=== PATIENT | male | born 1935 | race Caucasian/White ===

== ENCOUNTER 2016-11-10 09:41 | Emergency (ER) | payer MEDICARE, OTHER ==
--- NOTE | 2016-11-10 10:04 | EDM.PDOC ---
ED HISTORY OF PRESENT ILLNESS - General Chief Complaint: Cardiovascular Problem Stated Complaint: RAPID HEART RATE Time Seen by Provider: 11/10/16 09:59 - History of Present Illness INITIAL COMMENTS - FREE TEXT/NARRATIVE: 81-year-old male sent over from the clinic with a rapid heart rate. The patient was seen at his [place] [facility] yesterday by his regular physician who noted a pulse of 160. At that time the patient was absolutely asymptomatic. The patient was brought in to the clinic today for an EKG where again he was absolutely asymptomatic EKG showed a supraventricular tachycardia rate 161. Patient was sent over here for rate control. Patient denies any chest pain no breathing difficulties or shortness of breath. He has an intermittent cough that is chronic he is not coughing up any blood. Reviewed his old records the patient has done as in the past recent asymptomatic he did not receive any medications at that point but converted with the administration of magnesium whether or not this helped is unclear. 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 - Related Data Allergies/ADRs: Allergies Allergy/AdvReac Type Severity Reaction Status Date / Time No Known Allergies Allergy Verified 12/08/15 21:02 Home Meds: Home Meds Simvastatin [Zocor] 40 mg PO DAILY 01/12/14 [History] Tamsulosin [Flomax] 0.4 mg PO DAILY 01/12/14 [History] metFORMIN [Glucophage XR] 1,000 mg PO ASDIRECTED 01/12/14 [History] Cyanocobalamin (Vitamin B-12) [B-12] 1,000 mcg PO DAILY #30 tablet.er 03/09/14 [ Rx] Multivitamins with Iron [Daily Multivitamin with Iron] 1 each PO DAILY #30 tablet 03/09/14 [Rx] Acetaminophen [Mapap] 650 mg PO TID PRN 12/08/15 [History] Carboxymethylcellulos/Glycerin [Refresh Optive Gel Eye Drops] 1 drop EYEBOTH DAILY 11/10/16 [History] Diltiazem HCl [Dilt-XR] 120 mg PO DAILY 11/10/16 [History] Docusate Sodium/Sennosides [Senna Plus] 1 tab PO DAILY PRN 11/10/16 [History] traMADol [Ultram] 50 mg PO Q12H PRN 11/10/16 [History] Past Medical History HEENT History: Reports: Impaired vision Cardiovascular History: Reports: High cholesterol, Hypertension Gastrointestinal History: Reports: Chronic constipation Genitourinary History: Reports: UTI, recurrent Musculoskeletal History: Reports: Other (see below) Other Musculoskeletal History: hypertrophy Neurological History: Reports: Other (see below) Other Neuro History: infantile cerebral palsy Endocrine/Metabolic History: Reports: Diabetes, type II Oncologic (Cancer) History: Reports: Basal cell carcinoma Other Dermatologic History: disorder of the skin Social & Family History - Family History Family Medical History: Unobtainable - Tobacco Use Smoking Status *Q: Unknown Ever Smoked Second Hand Smoke Exposure: No - Alcohol Use Days Per Week of Alcohol Use: 0 Number of Drinks Per Day: 0 Total Drinks Per Week: 0 - Recreational Drug Use Recreational Drug Use: No Drug Use in Last 12 Months: No ED ROS GENERAL - Review of Systems Review Of Systems: See Below Constitutional: Reports: no symptoms HEENT: Reports: No symptoms Respiratory: Reports: No Symptoms Cardiovascular: Reports: No symptoms GI/Abdominal: Reports: No symptoms : Reports: no symptoms ED EXAM, GENERAL - Physical Exam Exam: See Below Exam Limited By: No limitations General Appearance: alert, no apparent distress Head: atraumatic, normocephalic Neck: normal inspection, supple, non-tender, full range of motion. No: lymphadenopathy (L), lymphadenopathy (R) Respiratory/Chest: no respiratory distress, lungs clear, normal breath sounds Cardiovascular: regular rate, rhythm, no edema, no murmur, tachycardia (Rate 160s) GI/Abdominal: normal bowel sounds, soft, non tender, no organomegaly, no distention, no abnormal bruit, no mass Back Exam: normal inspection. No: CVA tenderness (L), CVA tenderness (R) Extremities: normal inspection, no pedal edema EKG INTERPRETATION EKG Date: 11/10/16 Rhythm: other (He has a slightly irregular tachycardia rate 160) QRS: RBBB ST-T: other (Nonspecific nondiagnostic changes) Comparison: other: (Subtle changes probably related to lead placement) Course - Vital Signs Last Recorded V/S: Last Vital Signs Temp 36.1 C 11/10/16 09:48 Pulse 155 H 11/10/16 09:48 Resp 18 11/10/16 09:48 BP 97/57 L 11/10/16 09:48 Pulse Ox 97 11/10/16 09:48 - Orders/Labs/Meds Orders: Active Orders 24 hr Category Date Time Status EKG 12 Lead [EKG Documentation Completion] [RC] STAT Care 11/10/16 09:52 Active EKG Documentation Completion [RC] STAT Care 11/10/16 10:36 Active Diltiazem [Cardizem] 100 mg Med 11/10/16 10:30 Active Sodium Chloride 0.9% [Normal Saline] 100 ml IV TITRATE Medication Orders Diltiazem HCl 100 mg/ Sodium (Chloride) 100 mls @ 5 mls/hr IV TITRATE ADRIENNE; 5 MG /HR PRN Reason: Protocol Labs: Laboratory Tests 11/10/16 11/10/16 11/10/16 Range/Units 09:55 09:55 09:55 WBC 8.23 (4.23-9.07) K/mm3 RBC 4.13 L (4.63-6.08) M/mm3 Hgb 11.8 L (13.7-17.5) gm/L Hct 38.2 L (40.1-51.0) % MCV 92.5 H (79.0-92.2) fl MCH 28.6 (25.7-32.2) pg MCHC 30.9 L (32.2-35.5) g/dl RDW Std Deviation 56.3 H (35.1-43.9) fL Plt Count 241 (163-337) K/mm3 MPV 9.5 (9.4-12.3) fl Neutrophils % (Manual) 73 H (40-60) % Band Neutrophils % 0 (0-10) % Lymphocytes % (Manual) 9 L (20-40) % Atypical Lymphs % 3 % Monocytes % (Manual) 11 H (2-10) % Eosinophils % (Manual) 3 (0.8-7.0) % Basophils % (Manual) 1 (0.2-1.2) Platelet Estimate Adequate Plt Morphology Comment Normal Poikilocytosis 1+ slight Anisocytosis 2+ moderate Microcytosis 1+ slight Macrocytosis 1+ slight Ovalocytes 1+ slight RBC Morph Comment Abnormal PT 10.3 (8.0-13.0) SECONDS INR 0.95 APTT 26 (22-36) SECONDS Sodium 142 (136-145) mEq/L Potassium 5.2 H (3.5-5.1) mEq/L Chloride 106 (98-107) mEq/L Carbon Dioxide 27 (21-32) mEq/L Anion Gap 14.2 (5-15) BUN 31 H (7-18) mg/dL Creatinine 1.0 (0.7-1.3) mg/dL Est Cr Clr Drug Dosing 40.89 mL/min Estimated GFR (MDRD) > 60 (>60) mL/min BUN/Creatinine Ratio 31.0 H (14-18) Glucose 99 (83-115) mg/dL Calcium 9.3 (8.5-10.1) mg/dL Magnesium 1.8 (1.8-2.4) mg/dl Total Bilirubin 0.4 (0.2-1.0) mg/dL AST 12 L (15-37) U/L ALT 15 L (16-63) U/L Alkaline Phosphatase 63 (46-116) U/L Troponin I < 0.017 (0.00-0.056) ng/mL Total Protein 7.4 (6.4-8.2) g/dl Albumin 3.7 (3.4-5.0) g/dl Globulin 3.7 gm/dL Albumin/Globulin Ratio 1.0 (1-2) Meds: Medications Generic Name Dose Route Start Last Admin Trade Name Freq PRN Reason Stop Dose Admin Diltiazem HCl 100 mg/ Sodium 100 mls @ 5 mls/hr 11/10/16 10:30 Chloride IV TITRATE ADRIENNE Protocol 5 MG/HR Discontinued Medications Generic Name Dose Route Start Last Admin Trade Name Freq PRN Reason Stop Dose Admin Diltiazem HCl 10 mg 11/10/16 10:06 11/10/16 10:13 Diltiazem IVPUSH 11/10/16 10:07 10 mg ONETIME ONE Administration - Re-Assessments/Exams Free Text/Narrative Re-Assessment/Exam: 11/10/16 10:34 Patient was brought in and of an he was given 5 mg of diltiazem as his blood pressure was low this was followed by a second 5 mg his rate work down into the 90s were used atrial flutter with variable conduction 2-4 a diltiazem drip was ordered however we will just watch at this point awaiting labs. 11/10/16 11:04 Patient's ventricular rate has remained in the upper 80s to low 90s without starting a diltiazem drip and just observing labs reviewed nondiagnostic magnesium is 1.8 11/10/16 12:06 Patient continues to do well. His heart rate is been in the 80s. He is still in atrial flutter. Case discussed with Meenakshi the patient's power of assistant city attorney. [phone]. Discussed further treatment options including anticoagulation I don't have an echo or much more information on this patient Meenakshi would like to wait and talk over potential anticoagulation with Dr. Buck the patient's regular physician. We have attempted to try and contact Dr. Buck however he is not available at this time. The patient's blood pressure is good 110/67 his pulse in the 80s he is on diltiazem 120 mg daily will not change this at this point. Caution should be used with the diltiazem and his cholesterol lowering medication as the diltiazem can lower the ability to metabolize the simvastatin. Departure - Departure Time of Disposition: 12:09 Disposition: DC/Tfer to SNF 03 Reason for Transfer *Q: Other Clinical Impression: Supraventricular tachycardia, Atrial flutter Instructions: Atrial Flutter Referrals: Brigido Buck Jr, MD [Primary Care Provider] - Forms: ED Department Discharge Additional Instructions: Return to the emergency room with any questions or problems. Followup with Dr. Buck early next week to discuss potential anticoagulation. And further management for this elevated heart rate and abnormal rhythm. - My Orders Last 24 Hours: My Active Orders 11/10/16 09:52 EKG 12 Lead [EKG Documentation Completion] [RC] STAT 11/10/16 10:30 Diltiazem [Cardizem] 100 mg Sodium Chloride 0.9% [Normal Saline] 100 ml IV TITRATE 11/10/16 10:36 EKG Documentation Completion [RC] STAT - Assessment/Plan Last 24 Hours: My Active Orders 11/10/16 09:52 EKG 12 Lead [EKG Documentation Completion] [RC] STAT 11/10/16 10:30 Diltiazem [Cardizem] 100 mg Sodium Chloride 0.9% [Normal Saline] 100 ml IV TITRATE 11/10/16 10:36 EKG Documentation Completion [RC] STAT
[2016-11-10] MEDS ORDERED: Diltiazem 25 MG/5 ML SDV IVPUSH ONE (10:06)
[2016-11-10] MEDS ORDERED: Diltiazem 100 MG in Sodium Chloride 0.9% 100 ML IV SCH (10:30)
--- NOTE | 2016-11-10 10:58 | CR ---
Chest: Frontal view of the chest was obtained. Comparison: Previous chest x-ray of 12/08/[address] of 12/08/15. Elevated left hemidiaphragm is seen which is stable. Bowel is seen beneath the hemidiaphragm which is also stable. Elevated left hemidiaphragm causes mild left basilar atelectasis. Lungs otherwise are clear. Heart size and mediastinum are stable. Bony structures are stable. Impression: 1. Findings as described above. No significant change from prior chest x-rays seen. 2. Nothing acute is suspected. Diagnostic code #2
[2016-11-10 12:44] VITALS: BP 94/64
== END 2016-11-10 12:44 ==
LOC: JD.ED 09:41
DX: I48.92 Unspecified atrial flutter (principal); I47.1 Supraventricular tachycardia; E78.00 Pure hypercholesterolemia, unspecified; I10 Essential (primary) hypertension; E11.9 Type 2 diabetes mellitus without complications
CPT/HCPCS: 36415; 71010; 71010-26; 80053; 83735; 84484; 85025; 85610; 85730; 93005; 96374; 99284; 99285-25; J3490

== ENCOUNTER 2017-01-10 09:05 | Day surgery (SDC) | payer MEDICARE, OTHER ==
--- NOTE | 2017-01-10 06:12 | PCM.HP ---
H&P History of Present Illness - General Date of Service: 01/10/17 Admit Problem/Dx: dysphagia Source of Information: Patient - History of Present Illness Initial Comments - Free Text/Narative: The patient is a 81-year-old male~referred by Dr. Brigido Buck for evaluation of dysphagia. ~The patient is a resident at [facility] who has cerebral palsy , a history of recent difficulty with choking and coughing when he eats. Per Dr. Buck' noted "A speech therapist felt he needed to see gastroenterology to consider an EGD." The patient presents today for the above noted concern. He denies any changes to his medical history since his 12/08 clinic visit. He did follow up with his PCP for monitoring of his tachycardia/bradycardia, possible atrial flutter. His rate was in 80's no changes were made to the medication regimen. A one month follow up was planned. Patient denies recurrence of palpitations or alterations in heart rate. No history of reflux, heartburn, nausea, vomiting. Has dysphagia. ~Does not choke he just coughs up the foods. ~Feels foods do get stuck. Foods do get stuck , but come up on their own. Reports mostly coughs up mucus. Consumes nectar thick liquids. ~Eats pureed foods as well per patient. The patient denies any constipation/ diarrhea/ hematochezia/ melena. ~~~Bowel movements are described as regular and easy to pass. Reports weight loss. ~No abdominal pain. ~Denies history of ulcerative colitis or Crohn's disease. Denies any family history of inflammatory bowel disease or GI cancers. ~Last colonoscopy was 2013, tubular adenoma noted. ~Five year follow up recommended. . Recent history of tachy/bradycardia~episodes: 11/09/16: New onset tachycardia. PCP felt it was atrial fibrillation. ~Oral Cardizem started. ~EKG was abnormal. ~Wide QRS tachycardia, non specific IVCD. ~ 11/10/16: Transferred to ED from [place] for tachycardia. ~. ~11/10/16: Patient did got to ED. CBC showed, Hgb 11.8. Coagulation studies normal. ~Potassium slightly elevated at 5.2. Troponin negative. ~Mg normal at 1.8. ~Diltiazem given for atrial fibrillation. 11/14/16: Atrial flutter per PCP note. ~Patient asymptomatic. ~Cardizem discontinued. ~Toprol~50 mg daily started. Aspirin started. ~ 11/21/16: Patient bradycardic. ~Toprol~decreased to 25 mg daily. ~ 11/28/16: Patient bradycardic. ~Toprol discontinued. 12/06/16: Followed up with PCP. Bradycardia. ~no change to medications. ~EKG showed RBB, left posterior hemiblock, BPM 55. ~Follow up planned in one month PCP did comment patient may need pacemaker in the future. ~ 01/08-PCP follow up rate 80. No changes to regimen. Follow up in one month advised. No EKG completed. - Related Data Allergies/Adverse Reactions: Allergies Allergy/AdvReac Type Severity Reaction Status Date / Time No Known Allergies Allergy Verified 01/09/17 16:22 Home Medications: Home Meds Simvastatin [Zocor] 40 mg PO DAILY 01/12/14 [History] Tamsulosin [Flomax] 0.4 mg PO DAILY 01/12/14 [History] metFORMIN [Glucophage XR] 500 mg PO DAILY 01/12/14 [History] Cyanocobalamin (Vitamin B-12) [B-12] 1,000 mcg PO DAILY #30 tablet.er 03/09/14 [ Rx] Multivitamins with Iron [Daily Multivitamin with Iron] 1 each PO DAILY #30 tablet 03/09/14 [Rx] Acetaminophen [Mapap] 650 mg PO TID PRN 12/08/15 [History] Carboxymethylcellulos/Glycerin [Refresh Optive Gel Eye Drops] 1 drop EYEBOTH DAILY 11/10/16 [History] Docusate Sodium/Sennosides [Senna Plus] 1 tab PO DAILY PRN 11/10/16 [History] Acetaminophen [Tylenol] 650 mg PO TID 01/09/17 [History] Aspirin 325 mg PO DAILY 01/09/17 [History] Lisinopril 10 mg PO DAILY 01/09/17 [History] Sennosides/Docusate Sodium [Senna-Docusate Sodium] 2 tab PO DAILY 01/09/17 [ History] Trolamine Salicylate [Aspercreme] 1 applic TOP BID 01/09/17 [History] Past Medical History HEENT History: Reports: Hard of Hearing, Impaired Vision Cardiovascular History: Reports: Afib, High Cholesterol, Hypertension, Other ( See Below) Other Cardiovascular History: tachycardia, bradycardia Respiratory History: Reports: None Gastrointestinal History: Reports: Chronic Constipation, Colon Polyp, Hemorrhoids, Other (See Below) Other Gastrointestinal History: dysphagia, gallstones Genitourinary History: Reports: BPH, UTI, Recurrent CLINIC MANAGER History: Reports: None Musculoskeletal History: Reports: None, Other (See Below) Neurological History: Reports: Cerebral Palsy, Other (See Below) Other Neuro History: infantile cerebral palsy Psychiatric History: Reports: None Endocrine/Metabolic History: Reports: Diabetes, Type II Hematologic History: Reports: None Immunologic History: Reports: None Oncologic (Cancer) History: Reports: Basal Cell Carcinoma Other Dermatologic History: disorder of the skin, malignant melanoma - Past Surgical History Head Surgeries/Procedures: Reports: None GI Surgical History: Reports: Colonoscopy, Hernia Repair/Other Oncologic Surgical History: Reports: Other (See Below) Other Oncologic Surgeries/Procedures: sentinel lymph node biopsy Social & Family History - Family History Family Medical History: Unobtainable - Tobacco Use Smoking Status *Q: Unknown Ever Smoked Used Tobacco, but Quit: Yes Month Tobacco Last Used: october Second Hand Smoke Exposure: No - Caffeine Use Caffeine Use: Reports: None - Alcohol Use Days Per Week of Alcohol Use: 0 Number of Drinks Per Day: 0 Total Drinks Per Week: 0 - Recreational Drug Use Recreational Drug Use: No Drug Use in Last 12 Months: No H&P Review of Systems - Review of Systems: Review Of Systems: See Below Free Text/Narrative: Denies any exertional chest pain or shortness of breath. No history of any easy bleeding or bruising. No personal or familial history of clotting or bleeding disorders. No history of anesthetic complications. No history of familial anesthetic complications. Denies presence/history of chest pain, palpitations, lower extremity edema, dyspnea, orthopnea, obstructive sleep apnea, chronic cough, upper respiratory symptoms in the last two weeks. No history of blood thinner use. History of anemia. No history of seizure or stroke. No history of fever, chills, or nightsweats. No prior cardiology or pulmonology evaluation. All other systems reviewed and were negative except as per history of present illness. General: Reports: No Symptoms. Denies: Fever, Chills HEENT: Reports: No Symptoms Pulmonary: Reports: No Symptoms. Denies: Shortness of Breath Cardiovascular: Reports: No Symptoms. Denies: Chest Pain, Palpitations Gastrointestinal: Reports: No Symptoms. Denies: Abdominal Pain Genitourinary: Reports: No Symptoms Musculoskeletal: Reports: No Symptoms Skin: Reports: No Symptoms Psychiatric: Reports: No Symptoms Neurological: Reports: No Symptoms Hematologic/Lymphatic: Reports: No Symptoms Immunologic: Reports: No Symptoms Exam - Exam Exam: See Below - Vital Signs Weight: 49.895 kg - Exam General: Alert, Oriented, Cooperative HEENT: Conjunctiva Clear. No: Scleral Icterus Lungs: Clear to Auscultation, Normal Respiratory Effort Cardiovascular: Regular Rate, Regular Rhythm, Other (distant heart tones ) Abdomen: Soft. No: Tenderness Back Exam: Normal Inspection Extremities: Normal Inspection. No: Clubbing, Cyanosis, Edema, Increased Warmth Skin: Warm, Dry, Intact, Other (pale) Neuro Extensive - Mental Status: Alert, Oriented x3, Normal Mood/Affect, Normal Cognition, Memory Intact Psychiatric: Alert, Normal Affect, Normal Mood *Q Meaningful Use (ADM) - VTE *Q VTE Criteria *Q: - Stroke *Q Stroke Criteria *Q: - AMI *Q AMI Criteria *Q: - Problem List (1) Dysphagia SNOMED Code(s): 97032282, 982824982 ICD Code: R13.10 - DYSPHAGIA, UNSPECIFIED Status: Acute Current Visit: Yes Qualifiers: Dysphagia type: unspecified Qualified Code(s): R13.10 - Dysphagia, unspecified Problem List Initiated/Reviewed/Updated: Yes Orders Last 24hrs: Active Orders 24 hr Category Date Time Status Peripheral IV Care [RC] . DIRECTED Care 01/10/17 00:01 Active Verify Patient Consent Obtain [RC] ASDIRECTED Care 01/10/17 00:01 Active Lactated Ringers [Ringers, Lactated] 1,000 ml Med 01/10/17 00:01 Active IV ASDIRECTED Lidocaine 1%/Sod Bicarbonate [Buffered Lidocaine 1% in Med 01/10/17 00:01 Active NS 8.4%] 0.25 ml .XX ONETIME PRN Sodium Chloride 0.9% [Saline Flush] Med 01/10/17 00:01 Active 10 ml FLUSH ASDIRECTED PRN Medication Administration Instruction [OM.PC] Routine Oth 01/10/17 00:01 Ordered Peripheral IV Insertion Adult [OM.PC] Routine Oth 01/10/17 00:01 Ordered Medication Orders Lactated Ringer's (Ringers, Lactated) 1,000 mls @ 125 mls/hr IV ASDIRECTED ADRIENNE Stop: 01/10/17 23:00 Lidocaine/Sodium Bicarbonate (Buffered Lidocaine 1% In Ns 8.4%) 0.25 ml .XX ONETIME PRN PRN Reason: Prior to IV Start Stop: 01/10/17 18:00 Sodium Chloride (Saline Flush) 10 ml FLUSH ASDIRECTED PRN PRN Reason: Keep Vein Open Stop: 01/10/17 18:00 Assessment/Plan Comment:: 81yr male with dysphagia, need for diagnostic EGD with possible balloon dilation Denies exertional chest pain or shortness of breath. ~ Hx of Recent episodes of tachycardia and bradycardia-apparently resolved PLAN: We discussed performing a diagnostic EGD with possible balloon dilation. ~We discussed the procedure's risks and benefits including, pain, bleeding, infection, damage to surrounding structures, need for additional procedures, small bowel perforation. . This procedure will be done at [facility], due to cardiovascular~status. I personally reviewed the patient's previous medical records and laboratory studies. Patient verbalized understanding and agreed with care plan. This patient was evaluated with Dr. Renate Martinez, plan formulated above by Dr. Renate Martinez. OLGA Mooney scribing for Dr. Renate Martinez General Surgery Department [facility]
[~2017-01-10 09:05] MED LIST: Lactated Ringers 1,000 ML IV SCH; Lidocaine 1%/Sod Bicarbonate in NS 8.4% 1 ML Syringe PRN; Propofol 200 MG/20 ML SDV ONE; Sodium Chloride 0.9% 10 ML Syringe FLUSH PRN
--- NOTE | 2017-01-10 09:55 | PCM.PREANE ---
Preanesthetic Assessment - Anesthesia/Transfusion/Family Hx Anesthesia History: Prior Anesthesia Without Reaction Family History of Anesthesia Reaction: No Transfusion History: No Prior Transfusion(s) Intubation History: Unknown - Review of Systems General: No Symptoms Pulmonary: Cough (when swallowing food.) Cardiovascular: No Symptoms (history of HTN, history of a tachycardia/ bradycardia heart rhythm, currently stable. H/P notes a potential need in the future for a pacemaker.) Gastrointestinal: Difficulty swallowing Neurological: No Symptoms (history of cerebral palsy with left hemiparesis noted.), Numbness (noted in bilateral hands.) Other: Reports: None (history of kidney stones.), Easy Bruising, Diabetes (0700 blood sugar= 101) - Physical Assessment NPO Status Date: 01/10/17 NPO Status Time: 01:00 Pulse: 85 O2 Sat by Pulse Oximetry: 96 Respiratory Rate: 20 Blood Pressure: 134/49 Temperature: 36.6 C Vital Signs: Last Vital Signs Temp 36.6 C 01/10/17 09:15 Pulse 85 01/10/17 09:15 Resp 20 01/10/17 09:15 BP 134/49 L 01/10/17 09:15 Pulse Ox 96 01/10/17 09:15 Height: 1.65 m Weight: 49.895 kg ASA Class: 3 Mental Status: Alert & Oriented x3 Airway Class: Mallampati = 2 Dentition: Reports: Normal Dentition, Missing Tooth/Teeth, Caries Thyro-Mental Finger Breadths: 3 Mouth Opening Finger Breadths: 3 ROM/Head Extension: Full Lungs: Clear to auscultation, Normal respiratory effort Cardiovascular: Regular Rate, Regular Rhythm, No Murmurs - Imaging/EKG Impressions: EKG: sinus bradycardia rate=55, RBBB, left posterior hemiblock - Allergies Allergies/Adverse Reactions: Allergies Allergy/AdvReac Type Severity Reaction Status Date / Time No Known Allergies Allergy Verified 01/09/17 16:22 - Anesthesia Plan Pre-Op Medication Ordered: None - Acknowledgements Anesthesia Type Planned: MAC Pt an Appropriate Candidate for the Planned Anesthesia: Yes Alternatives and Risks of Anesthesia Discussed w Pt/Guardian: Yes Pt/Guardian Understands and Agrees with Anesthesia Plan: Yes PreAnesthesia Questionnaire HEENT History: Reports: Hard of Hearing, Impaired Vision Cardiovascular History: Reports: Afib, High Cholesterol, Hypertension, Other ( See Below) Other Cardiovascular History: tachycardia, bradycardia Respiratory History: Reports: None Gastrointestinal History: Reports: Chronic Constipation, Colon Polyp, Hemorrhoids, Other (See Below) Other Gastrointestinal History: dysphagia, gallstones Genitourinary History: Reports: BPH, UTI, 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 Musculoskeletal History: Reports: None, Other (See Below) Neurological History: Reports: Cerebral Palsy, Other (See Below) Other Neuro History: infantile cerebral palsy Psychiatric History: Reports: None Endocrine/Metabolic History: Reports: Diabetes, Type II Hematologic History: Reports: None Immunologic History: Reports: None Oncologic (Cancer) History: Reports: Basal Cell Carcinoma Other Dermatologic History: disorder of the skin, malignant melanoma - Past Surgical History Head Surgeries/Procedures: Reports: None GI Surgical History: Reports: Colonoscopy, Hernia Repair/Other Oncologic Surgical History: Reports: Other (See Below) Other Oncologic Surgeries/Procedures: sentinel lymph node biopsy - SUBSTANCE USE Smoking Status *Q: Unknown Ever Smoked Second Hand Smoke Exposure: No Days Per Week of Alcohol Use: 0 Number of Drinks Per Day: 0 Total Drinks Per Week: 0 Recreational Drug Use History: No - HOME MEDS Home Medications: Home Meds Simvastatin [Zocor] 40 mg PO DAILY 01/12/14 [History] Tamsulosin [Flomax] 0.4 mg PO DAILY 01/12/14 [History] metFORMIN [Glucophage XR] 500 mg PO DAILY 01/12/14 [History] Cyanocobalamin (Vitamin B-12) [B-12] 1,000 mcg PO DAILY #30 tablet.er 03/09/14 [ Rx] Multivitamins with Iron [Daily Multivitamin with Iron] 1 each PO DAILY #30 tablet 03/09/14 [Rx] Acetaminophen [Mapap] 650 mg PO TID PRN 12/08/15 [History] Carboxymethylcellulos/Glycerin [Refresh Optive Gel Eye Drops] 1 drop EYEBOTH DAILY 11/10/16 [History] Docusate Sodium/Sennosides [Senna Plus] 1 tab PO DAILY PRN 11/10/16 [History] Acetaminophen [Tylenol] 650 mg PO TID 01/09/17 [History] Aspirin 325 mg PO DAILY 01/09/17 [History] Lisinopril 10 mg PO DAILY 01/09/17 [History] Sennosides/Docusate Sodium [Senna-Docusate Sodium] 2 tab PO DAILY 01/09/17 [ History] Trolamine Salicylate [Aspercreme] 1 applic TOP BID 01/09/17 [History] - CURRENT (IN HOUSE) MEDS Current Meds: Current Medications Lactated Ringer's (Ringers, Lactated) 1,000 mls @ 125 mls/hr IV ASDIRECTED ADRIENNE Stop: 01/10/17 23:00 Last Admin: 01/10/17 09:25 Dose: 125 mls/hr Lidocaine/Sodium Bicarbonate (Buffered Lidocaine 1% In Ns 8.4%) 0.25 ml .XX ONETIME PRN PRN Reason: Prior to IV Start Stop: 01/10/17 18:00 Last Admin: 01/10/17 09:25 Dose: 0.25 ml Sodium Chloride (Saline Flush) 10 ml FLUSH ASDIRECTED PRN PRN Reason: Keep Vein Open Stop: 01/10/17 18:00 Discontinued Medications Propofol (Diprivan 20 Ml) Confirm Administered Dose 200 mg .ROUTE .STK-MED ONE Stop: 01/10/17 07:10
[2017-01-10] MEDS ORDERED: fentaNYL 100 MCG/2 ML SDV ONE (10:53)
--- NOTE | 2017-01-10 11:14 | PCM48HPAN ---
Post Anesthesia Note - EVALUATION WITHIN 48HRS OF ANESTHETIC Vital Signs in Normal Range: Yes Patient Participated in Evaluation: Yes Respiratory Function Stable: Yes Airway Patent: Yes Cardiovascular Function Stable: Yes Hydration Status Stable: Yes Pain Control Satisfactory: Yes Nausea and Vomiting Control Satisfactory: Yes Mental Status Recovered: Yes
[2017-01-10 11:16] VITALS: BP 98/49
--- NOTE | 2017-01-10 11:27 | PCM.OPNOTE ---
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 Small bowel biopsy 2. Antral biopsy 3. Distal esophageal biopsy EBL in mLs: 2 Complications: None Condition: Good Free Text/Narrative:: FLUIDS: 900 mL crystalloid. INDICATION FOR PROCEDURE: The patient is an 81-year-old man who is referred to me by Dr. Brigido Buck for evaluation of dysphagia. The patient does have a history of cerebral palsy. EGD had been discussed with the patient and risks of the associated procedure. The patient found these risks acceptable and agreed to proceed. DESCRIPTION OF PROCEDURE: The patient was taken to the operating room and placed in the left lateral decubitus position. After induction of adequate sedation, a bite block was placed. A standard Olympus gastroscope was inserted into the oropharynx and guided down the esophagus without difficulty. The gastroesophageal junction was appreciated at 39 cm from the teeth. There was no evidence of stricture or esophageal ulcerations. The scope was advanced into the stomach, which was quite difficult, due to the shape of the stomach, highly suspicious for a massive paraesophageal hernia. The scope was passed into the proximal jejunum and the duodenum which were unremarkable other than their position. There were no petechiae or ulcerations. The proximal jejunum was grossly normal in appearance. Multiple cold forceps biopsies were obtained of the proximal jejunum and duodenum. The scope was withdrawn into the antrum, and additional cold forceps biopsies were obtained. The patient did have severe gastritis. There were 2 gastric ulcers along the body of the stomach. They were not actively bleeding. The remainder of the gastric body was examined, and there was what appeared to be a massive paraesophageal hernia. The scope was straightened and withdrawn to the GE junction. Additional cold forceps biopsies were obtained of the distal esophagus. The scope was withdrawn through the remainder of the esophagus and no further abnormalities were noted. The posterior oropharynx was grossly normal in appearance. Of note, the patient had essentially no gag reflex with the endoscopy. The scope was then fully withdrawn. The patient was awakened from sedation and transferred to the recovery room in stable condition having tolerated the procedure well. POSTOPERATIVE PLAN: I had the opportunity to review a prior CAT scan from 2014 after the case. On the report, left hemidiaphragm eventration had been called by the radiologist, however I think that this represents a massive paraesophageal hernia, with the entirety of the stomach present within the chest , and even a portion of the proximal pancreas and duodenum. I'm going to have the patient obtain a CAT scan of the chest further clarify the anatomy. I would recommended surgical intervention, likely a PEG gastropexy, be performed on this given his symptoms of ongoing aspiration, gastric ulcers, etc. The patient will follow up in approximately 2 weeks to discuss their pathology and intra- operative findings. The patient is to start Omeprazole 40mg BID. I have asked the patient to follow a GERD\gastritis diet. The patient is to call with any worsening of symptoms or questions prior to appointment.
== END 2017-01-10 12:20 | disposition home or self-care (01) ==
LOC: JD.SDS 09:05
PROVIDERS: ATTEND Surgery
DX: K29.50 Unspecified chronic gastritis without bleeding (principal); K25.9 Gastric ulcer, unspecified as acute or chronic, without hemorrhage or perforation; K21.9 Gastro-esophageal reflux disease without esophagitis; I48.91 Unspecified atrial fibrillation; I10 Essential (primary) hypertension; E11.9 Type 2 diabetes mellitus without complications; G80.8 Other cerebral palsy; N40.0 Benign prostatic hyperplasia without lower urinary tract symptoms; Z98.890 Other specified postprocedural states; Z79.899 Other long term (current) drug therapy; Z79.84 Long term (current) use of oral hypoglycemic drugs; Z79.82 Long term (current) use of aspirin
CPT/HCPCS: 43239; J3010; J7120; 88305; 88342; J2704

== ENCOUNTER 2017-02-01 14:30 | Emergency (ER) | payer MEDICARE, OTHER, MEDICAID ==
[2017-02-01] MEDS ORDERED: Sodium Chloride 0.9% 10 ML Syringe FLUSH PRN (14:51)
[2017-02-01] MEDS ORDERED: Diltiazem 25 MG/5 ML SDV IVPUSH ONE (14:53)
[2017-02-01] MEDS ORDERED: Sodium Chloride 0.9% 1,000 ML IV SCH (15:00)
[2017-02-01] MEDS ORDERED: Diltiazem 125 MG in Sodium Chloride 0.9% 100 ML IV SCH (15:00)
--- NOTE | 2017-02-01 16:42 | EDM.PDOC ---
ED HPI GENERAL MEDICAL PROBLEM - General Chief Complaint: Cardiovascular Problem Stated Complaint: SENT BY [facility] Time Seen by Provider: 02/01/17 14:46 Source of Information: Reports: Patient History Limitations: Reports: No Limitations - History of Present Illness INITIAL COMMENTS - FREE TEXT/NARRATIVE: The patient presents with a rapid heart rate. He was sent by [facility]. He was seeing Malena Hughes post EGD. They did vital signs and found the patient has a rapid heart rate. He has a history of this. This has been an ongoing problem. On 11/09 he had atrial fibrillation and was put on cardizem. On 11/14 he was in A-flutter and cardizem was stopped and he was started on toprol 50mg. On 11/21/16 he had bradycardia and his torprol was reduced to 25mg. On 11/28/16 he was still bradycardic and his toprol was stopped. On 12/06/16 the patient was in a bradycardia, RBBB, left posterior hemiblock. Heart rate was 55. The patient has no complaints. He has no chest pain or shortness of breath. He does not feel like his heart is racing. He has no fever, chills, cough, nausea , vomiting or abdominal pain. Onset: Gradual Duration: Day(s): Severity: Mild Improves with: Reports: None Worsens with: Reports: None Associated Symptoms: Reports: No Other Symptoms - Related Data Allergies Allergy/AdvReac Type Severity Reaction Status Date / Time No Known Allergies Allergy Verified 01/09/17 16:22 Home Meds: Home Meds Simvastatin [Zocor] 40 mg PO DAILY 01/12/14 [History] Tamsulosin [Flomax] 0.4 mg PO DAILY 01/12/14 [History] metFORMIN [Glucophage XR] 500 mg PO DAILY 01/12/14 [History] Cyanocobalamin (Vitamin B-12) [B-12] 1,000 mcg PO DAILY #30 tablet.er 03/09/14 [ Rx] Multivitamins with Iron [Daily Multivitamin with Iron] 1 each PO DAILY #30 tablet 03/09/14 [Rx] Carboxymethylcellulos/Glycerin [Refresh Optive Gel Eye Drops] 1 drop EYEBOTH DAILY 11/10/16 [History] Acetaminophen [Tylenol] 650 mg PO TID 01/09/17 [History] Lisinopril 10 mg PO DAILY 01/09/17 [History] Sennosides/Docusate Sodium [Senna-Docusate Sodium] 2 tab PO DAILY 01/09/17 [ History] Omeprazole 40 mg PO BIDAC #90 cap.cr 01/10/17 [Rx] Carboxymethyl/Gly/Poly80/Pf [Refresh Optive Advanced Drops] 1 drop TOP DAILY [History] Diltiazem HCl [Cardizem LA] 120 mg PO DAILY #30 tab.sr.24h 02/01/17 [Rx] Lidocaine HCl [Aspercreme] 0 mg TOP ASDIRECTED PRN 02/01/17 [History] Mineral Oil/Petrolatum Oint [Lacri-Lube S.O.P Oint] 0 mg TOP BEDTIME 02/01/17 [ History] traMADol [Ultram] 50 mg PO DAILY 02/01/17 [History] Past Medical History HEENT History: Reports: Hard of Hearing, Impaired Vision Cardiovascular History: Reports: Afib, High Cholesterol, Hypertension, Other ( See Below) Other Cardiovascular History: tachycardia, bradycardia Respiratory History: Reports: None Gastrointestinal History: Reports: Chronic Constipation, Colon Polyp, Hemorrhoids, Other (See Below) Other Gastrointestinal History: dysphagia, gallstones Genitourinary History: Reports: BPH, UTI, 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 Musculoskeletal History: Reports: None, Other (See Below) Neurological History: Reports: Cerebral Palsy, Other (See Below) Other Neuro History: infantile cerebral palsy Psychiatric History: Reports: None Endocrine/Metabolic History: Reports: Diabetes, Type II Hematologic History: Reports: None Immunologic History: Reports: None Oncologic (Cancer) History: Reports: Basal Cell Carcinoma Other Dermatologic History: disorder of the skin, malignant melanoma - Past Surgical History Head Surgeries/Procedures: Reports: None GI Surgical History: Reports: Colonoscopy, Hernia Repair/Other Oncologic Surgical History: Reports: Other (See Below) Other Oncologic Surgeries/Procedures: sentinel lymph node biopsy Social & Family History - Family History Family Medical History: Unobtainable - Tobacco Use Smoking Status *Q: Former Smoker Used Tobacco, but Quit: Yes Month Tobacco Last Used: 25 Second Hand Smoke Exposure: No - Caffeine Use Caffeine Use: Reports: Coffee, Tea - Alcohol Use Days Per Week of Alcohol Use: 0 Number of Drinks Per Day: 0 Total Drinks Per Week: 0 - Recreational Drug Use Recreational Drug Use: No Drug Use in Last 12 Months: No ED ROS GENERAL - Review of Systems Review Of Systems: See Below Constitutional: Reports: No Symptoms HEENT: Reports: No Symptoms Respiratory: Reports: No Symptoms Cardiovascular: Reports: Palpitations Endocrine: Reports: No Symptoms GI/Abdominal: Reports: No Symptoms : Reports: No Symptoms Musculoskeletal: Reports: No Symptoms Skin: Reports: No Symptoms ED EXAM, GENERAL - Physical Exam Exam: See Below Exam Limited By: No Limitations General Appearance: Alert, No Apparent Distress Ears: Normal External Exam Nose: Normal Inspection Head: Atraumatic, Normocephalic Neck: Normal Inspection Respiratory/Chest: No Respiratory Distress, Lungs Clear, Normal Breath Sounds Cardiovascular: No Edema, No Murmur, Tachycardia GI/Abdominal: Soft, Non-Tender, No Organomegaly, No Mass Back Exam: Normal Inspection Extremities: Normal Inspection EKG INTERPRETATION EKG Date: 02/01/17 Time: 14:42 Rhythm: Other (Wide complex tachycardia) Rate (Beats/Min): 152 [place]: Normal P-Wave: Present QRS: RBBB ST-T: Normal QT: Normal Course - Vital Signs Last Recorded V/S: Last Vital Signs Temp 97.6 F 02/01/17 14:40 Pulse 155 H 02/01/17 14:40 Resp 13 02/01/17 14:40 BP 83/64 L 02/01/17 14:40 Pulse Ox 99 02/01/17 14:51 - Orders/Labs/Meds Orders: Active Orders 24 hr Category Date Time Status Cardiac Monitoring [RC] . DIRECTED Care 02/01/17 14:51 Active EKG 12 Lead [EKG Documentation Completion] [RC] STAT Care 02/01/17 16:17 Ordered EKG Documentation Completion [RC] STAT Care 02/01/17 14:52 Active Oxygen Therapy [RC] PRN Care 02/01/17 14:51 Active Peripheral IV Care [RC] . DIRECTED Care 02/01/17 14:52 Active Chest 1V Frontal [CR] Stat Exams 02/01/17 14:53 Taken Diltiazem 125 mg Med 02/01/17 15:00 Active Sodium Chloride 0.9% [Normal Saline] 100 ml IV TITRATE Sodium Chloride 0.9% [Normal Saline] 1,000 ml Med 02/01/17 15:00 Active IV ASDIRECTED Sodium Chloride 0.9% [Saline Flush] Med 02/01/17 14:51 Active 10 ml FLUSH ASDIRECTED PRN Peripheral IV Insertion Adult [OM.PC] Stat Oth 02/01/17 14:51 Ordered Medication Orders Diltiazem HCl 125 mg/ Sodium (Chloride) 125 mls @ 10 mls/hr IV TITRATE ADRIENNE; 10 MG/HR PRN Reason: Protocol Last Admin: 02/01/17 15:10 Dose: 10 mg/hr, 10 mls/hr Sodium Chloride (Normal Saline) 1,000 mls @ 125 mls/hr IV ASDIRECTED ADRIENNE Last Admin: 02/01/17 15:03 Dose: 125 mls/hr Sodium Chloride (Saline Flush) 10 ml FLUSH ASDIRECTED PRN PRN Reason: Keep Vein Open Last Admin: 02/01/17 15:03 Dose: 10 ml Labs: Laboratory Tests 02/01/17 02/01/17 Range/Units 15:05 15:05 WBC 6.01 (4.23-9.07) K/mm3 RBC 4.01 L (4.63-6.08) M/mm3 Hgb 11.5 L (13.7-17.5) gm/L Hct 37.7 L (40.1-51.0) % MCV 94.0 H (79.0-92.2) fl MCH 28.7 (25.7-32.2) pg MCHC 30.5 L (32.2-35.5) g/dl RDW Std Deviation 56.0 H (35.1-43.9) fL Plt Count 218 (163-337) K/mm3 MPV 9.1 L (9.4-12.3) fl Neut % (Auto) 78.5 H (34.0-67.9) % Lymph % (Auto) 8.2 L (21.8-53.1) % [place] % (Auto) 9.5 (5.3-12.2) % Eos % (Auto) 2.8 (0.8-7.0) Baso % (Auto) 0.2 (0.1-1.2) % Neut # (Auto) 4.72 (1.78-5.38) K/mm3 Lymph # (Auto) 0.49 L (1.32-3.57) K/mm3 [place] # (Auto) 0.57 (0.30-0.82) K/mm3 Eos # (Auto) 0.17 (0.04-0.54) K/mm3 Baso # (Auto) 0.01 (0.01-0.08) K/mm3 Manual Slide Review Abnormal smear Sodium 141 (136-145) mEq/L Potassium 5.0 (3.5-5.1) mEq/L Chloride 106 (98-107) mEq/L Carbon Dioxide 27 (21-32) mEq/L Anion Gap 13.0 (5-15) BUN 27 H (7-18) mg/dL Creatinine 1.1 (0.7-1.3) mg/dL Est Cr Clr Drug Dosing 33.79 mL/min Estimated GFR (MDRD) > 60 (>60) mL/min BUN/Creatinine Ratio 24.5 H (14-18) Glucose 126 H (83-115) mg/dL Calcium 8.8 (8.5-10.1) mg/dL Total Bilirubin 0.3 (0.2-1.0) mg/dL AST 16 (15-37) U/L ALT 20 (16-63) U/L Alkaline Phosphatase 61 (46-116) U/L Troponin I < 0.017 (0.00-0.056) ng/mL Total Protein 7.5 (6.4-8.2) g/dl Albumin 3.6 (3.4-5.0) g/dl Globulin 3.9 gm/dL Albumin/Globulin Ratio 0.9 L (1-2) TSH 3rd Generation 1.309 (0.358-3.74) uIU/mL Meds: Medications Generic Name Dose Route Start Last Admin Trade Name Freq PRN Reason Stop Dose Admin Diltiazem HCl 125 mg/ Sodium 125 mls @ 10 mls/hr 02/01/17 15:00 02/01/17 15: 10 Chloride IV 10 mg/hr TITRATE ADRIENNE 10 mls/hr Protocol Administration 10 MG/HR Sodium Chloride 1,000 mls @ 125 mls/hr 02/01/17 15:00 02/01/17 15:03 Normal Saline IV 125 mls/hr ASDIRECTED ADRIENNE Administration Sodium Chloride 10 ml 02/01/17 14:51 02/01/17 15:03 Saline Flush FLUSH 10 ml ASDIRECTED PRN Administration Keep Vein Open Discontinued Medications Generic Name Dose Route Start Last Admin Trade Name Jess PRN Reason Stop Dose Admin Diltiazem HCl 10 mg 02/01/17 14:53 02/01/17 15:04 Diltiazem IVPUSH 02/01/17 14:54 10 mg ONETIME ONE Administration - Re-Assessments/Exams Free Text/Narrative Re-Assessment/Exam: 02/01/17 16:43 I ordered an IV NS at 125mL/hr, EKG, CXR, labs, cardizem bolus and cardizem drip. His EKG shows a wide complex tachycardia at a rate of 152. His Hgb is a little low at 11.5. His CMP looks good. His troponin is negative and his TSH is negative. His heart rate is better. I did an EKG and he is now in A-fib at a rate of 78. He is in a RBBB with no acute changes. I called Dr Buck and he already left the clinic. I called Dr Olivas for a consult and she thought I could get him back on some cardizem and have him see Dr Buck next week. Departure - Departure Time of Disposition: 16:55 Disposition: DC[facility] Reason for Transfer *Q: Other Condition: Good Clinical Impression: Atrial flutter Qualifiers: Atrial flutter type: typical Qualified Code(s): I48.3 - Typical atrial flutter Prescriptions: Diltiazem HCl [Cardizem LA] 120 mg PO DAILY #30 tab.sr.24h Referrals: Brigido Buck Jr, MD [Primary Care Provider] - 1 Week Forms: ED Department Discharge Additional Instructions: Take the cardizem 120mg daily. Follow up with Dr Buck next week. Please return if you are worse. - My Orders Last 24 Hours: My Active Orders 02/01/17 14:51 Cardiac Monitoring [RC] . DIRECTED Oxygen Therapy [RC] PRN Sodium Chloride 0.9% [Saline Flush] 10 ml FLUSH ASDIRECTED PRN Peripheral IV Insertion Adult [OM.PC] Stat 02/01/17 14:52 EKG Documentation Completion [RC] STAT Peripheral IV Care [RC] . DIRECTED 02/01/17 14:53 Chest 1V Frontal [CR] Stat 02/01/17 15:00 Diltiazem 125 mg Sodium Chloride 0.9% [Normal Saline] 100 ml IV TITRATE Sodium Chloride 0.9% [Normal Saline] 1,000 ml IV ASDIRECTED 02/01/17 16:17 EKG 12 Lead [EKG Documentation Completion] [RC] STAT - Assessment/Plan Last 24 Hours: My Active Orders 02/01/17 14:51 Cardiac Monitoring [RC] . DIRECTED Oxygen Therapy [RC] PRN Sodium Chloride 0.9% [Saline Flush] 10 ml FLUSH ASDIRECTED PRN Peripheral IV Insertion Adult [OM.PC] Stat 02/01/17 14:52 EKG Documentation Completion [RC] STAT Peripheral IV Care [RC] . DIRECTED 02/01/17 14:53 Chest 1V Frontal [CR] Stat 02/01/17 15:00 Diltiazem 125 mg Sodium Chloride 0.9% [Normal Saline] 100 ml IV TITRATE Sodium Chloride 0.9% [Normal Saline] 1,000 ml IV ASDIRECTED 02/01/17 16:17 EKG 12 Lead [EKG Documentation Completion] [RC] STAT
[2017-02-01] MEDS ORDERED: Diltiazem IR 60 MG Tab PO ONE (16:50)
[2017-02-01 17:04] VITALS: BP 97/60
--- NOTE | 2017-02-02 10:04 | CR ---
Chest: Portable view of the chest was obtained. Comparison: Previous chest x-ray of 11/10/16. Elevated left hemidiaphragm is seen. Left basilar atelectasis is noted. Difficult to exclude diaphragmatic herniation. Right lung is clear. Heart size is normal. Tortuous thoracic aorta is seen. Impression: 1. Elevated left hemidiaphragm, difficult to exclude diaphragmatic hernia. This finding is fairly stable from previous chest x-ray. 2. Left basilar atelectasis. Diagnostic code #3
== END 2017-02-01 17:15 ==
LOC: SUPCPDRO 14:30 → JD.ED 14:30
DX: I48.3 Typical atrial flutter (principal); I10 Essential (primary) hypertension; E78.00 Pure hypercholesterolemia, unspecified; E11.9 Type 2 diabetes mellitus without complications; Z85.828 Personal history of other malignant neoplasm of skin; Z87.440 Personal history of urinary (tract) infections; Z98.890 Other specified postprocedural states; Z87.891 Personal history of nicotine dependence; Z79.84 Long term (current) use of oral hypoglycemic drugs; Z79.899 Other long term (current) drug therapy
CPT/HCPCS: 36415; 71010; 80053; 84443; 84484; 85025; 93005; 96365; 96366; 96376; 99285; A9270; J7030; J7040; J7050; 99284; J3490

== ENCOUNTER 2017-04-10 20:23 | Emergency (ER) | payer MEDICARE, OTHER, MEDICAID ==
[2017-04-10 20:30] VITALS: BP 123/68
[2017-04-10] MEDS ORDERED: Sodium Chloride 0.9% 10 ML Syringe FLUSH PRN (21:06)
[2017-04-10] MEDS ORDERED: Sodium Chloride 0.9% 1,000 ML IV SCH (21:15)
--- NOTE | 2017-04-10 21:15 | EDM.PDOC ---
ED HPI GENERAL MEDICAL PROBLEM - General Chief Complaint: Cardiovascular Problem Stated Complaint: [facility] Time Seen by Provider: 04/10/17 20:54 Source of Information: Reports: Patient, Prison Records History Limitations: Reports: Other (Patient has CP and has difficulty speaking. ) - History of Present Illness INITIAL COMMENTS - FREE TEXT/NARRATIVE: Patient is a 81-year-old male from [facility] who presents to the ED with concerns of A. fib with RVR. He has history of atrial fibrillation/flutter. PR staff noted patient had a heart rate of 148 and became lightheaded. Patient has a history of this and has been treated multiple times in the ER. Patient states he's had intermittent dysuria. Had 2 episodes of diarrhea today with no further issues. Patient currently denies any chest pain, shortness of breath, dizziness, nausea/vomiting, abdominal pain, or blood in stool. States he has history of gastric ulcer. Patient has taken all his medications as listed. Patient has a history of cerebral palsy, dysphagia, gastric ulcer, gastritis, dysarthria and an arthritic, chronic pain to the right shoulder, hypertension, hypercholesteremia, type 2 diabetes, BPH, and atrial fibrillation. Patient's currently on Cardizem long-acting 120 mg one tab daily, lisinopril 10 mg 1 tab daily, simvastatin 40 mg 1 tab daily, metformin 500 mg twice a day, Flomax 0.4 mg one tab daily, omeprazole 40 mg by mouth to twice a day, and ibuprofen 200 mg by mouth bedtime. Along with a variety of vitamins. - Related Data Allergies Allergy/AdvReac Type Severity Reaction Status Date / Time No Known Allergies Allergy Verified 01/09/17 16:22 Home Meds: Home Meds Simvastatin [Zocor] 40 mg PO DAILY 01/12/14 [History] Tamsulosin [Flomax] 0.4 mg PO DAILY 01/12/14 [History] metFORMIN [Glucophage XR] 500 mg PO BID 01/12/14 [History] Cyanocobalamin (Vitamin B-12) [B-12] 1,000 mcg PO DAILY #30 tablet.er 03/09/14 [ Rx] Multivitamins with Iron [Daily Multivitamin with Iron] 1 each PO DAILY #30 tablet 03/09/14 [Rx] Carboxymethylcellulos/Glycerin [Refresh Optive Gel Eye Drops] 1 drop EYEBOTH DAILY 11/10/16 [History] Acetaminophen [Tylenol] 650 mg PO TID 01/09/17 [History] Lisinopril 10 mg PO DAILY 01/09/17 [History] Sennosides/Docusate Sodium [Senna-Docusate Sodium] 2 tab PO DAILY 01/09/17 [ History] Omeprazole 40 mg PO BIDAC #90 cap.cr 01/10/17 [Rx] Carboxymethyl/Gly/Poly80/Pf [Refresh Optive Advanced Drops] 1 drop TOP DAILY [History] Diltiazem HCl [Cardizem LA] 120 mg PO DAILY #30 tab.sr.24h 02/01/17 [Rx] Lidocaine HCl [Aspercreme] 0 mg TOP ASDIRECTED PRN 02/01/17 [History] Mineral Oil/Petrolatum Oint [Lacri-Lube S.O.P Oint] 0 mg TOP BEDTIME 02/01/17 [ History] Ibuprofen 200 mg PO BEDTIME 04/10/17 [History] Levofloxacin [Levaquin] 500 mg PO Q24H #6 tablet 04/10/17 [Rx] Past Medical History HEENT History: Reports: Hard of Hearing, Impaired Vision Cardiovascular History: Reports: Afib, High Cholesterol, Hypertension, Other ( See Below) Other Cardiovascular History: tachycardia, bradycardia Respiratory History: Reports: None Gastrointestinal History: Reports: Chronic Constipation, Colon Polyp, Hemorrhoids, Other (See Below) Other Gastrointestinal History: dysphagia, gallstones Genitourinary History: Reports: BPH, UTI, Recurrent [employer] History: Reports: None Musculoskeletal History: Reports: None, Other (See Below) Neurological History: Reports: Cerebral Palsy, Other (See Below) Other Neuro History: infantile cerebral palsy Psychiatric History: Reports: None Endocrine/Metabolic History: Reports: Diabetes, Type II Hematologic History: Reports: None Immunologic History: Reports: None Oncologic (Cancer) History: Reports: Basal Cell Carcinoma Other Dermatologic History: disorder of the skin, malignant melanoma - Past Surgical History Head Surgeries/Procedures: Reports: None GI Surgical History: Reports: Colonoscopy, Hernia Repair/Other Oncologic Surgical History: Reports: Other (See Below) Other Oncologic Surgeries/Procedures: sentinel lymph node biopsy Social & Family History - Family History Family Medical History: Unobtainable - Tobacco Use Smoking Status *Q: Former Smoker Used Tobacco, but Quit: Yes Month Tobacco Last Used: 20 years ago quit Second Hand Smoke Exposure: No - Caffeine Use Caffeine Use: Reports: None - Alcohol Use Days Per Week of Alcohol Use: 0 Number of Drinks Per Day: 0 Total Drinks Per Week: 0 - Recreational Drug Use Recreational Drug Use: No Drug Use in Last 12 Months: No ED ROS GENERAL - Review of Systems Review Of Systems: See Below (Per patient) Constitutional: Denies: Fever, Chills Respiratory: Denies: Shortness of Breath, Cough, Sputum Cardiovascular: Reports: Lightheadedness. Denies: Chest Pain, Dyspnea on Exertion, Palpitations, Syncope GI/Abdominal: Reports: Diarrhea (2 episodes today). Denies: Abdominal Pain, Black Stool, Bloody Stool, Constipation, Decreased Appetite, Distension, Flatus , Hematemesis, Hematochezia, Melena, Nausea, Vomiting : Reports: Dysuria (Intermittent). Denies: Flank Pain, Frequency, Hematuria, Urgency, Urinary Retention Musculoskeletal: Reports: No Symptoms Neurological: Reports: No Symptoms ED EXAM, GENERAL - Physical Exam Exam: See Below Exam Limited By: Other (Patient has CP with difficulty speaking.) General Appearance: Alert, WD/WN, No Apparent Distress Ears: Hearing Grossly Normal Nose: Normal Inspection Throat/Mouth: Normal Inspection, Normal Oropharynx, Normal Voice, No Airway Compromise, Other (Patient is a history of CP and has difficulty speaking.) Neck: Normal Inspection, Supple Respiratory/Chest: No Respiratory Distress, Lungs Clear, Normal Breath Sounds, No Accessory Muscle Use, Chest Non-Tender Cardiovascular: Normal Peripheral Pulses, No Murmur, Irregularly Irregular Peripheral Pulses: 2+: Radial (L), Radial (R) GI/Abdominal: Normal Bowel Sounds, Soft, Non-Tender, No Organomegaly, No Distention Back Exam: Normal Inspection Extremities: Normal Inspection, Non-Tender, No Pedal Edema, Normal Capillary Refill Neurological: Alert, Oriented, CN II-XII Intact, Normal Cognition, No Motor/ Sensory Deficits Psychiatric: Normal Affect, Normal Mood Skin Exam: Warm, Dry, Intact, Normal Color Course - Vital Signs Last Recorded V/S: Last Vital Signs Temp 97.6 F 04/10/17 20:25 Pulse 105 H 04/10/17 20:25 Resp 16 04/10/17 20:25 BP 123/68 04/10/17 20:25 Pulse Ox 94 L 04/10/17 20:25 - Orders/Labs/Meds Orders: Active Orders 24 hr Category Date Time Status EKG Documentation Completion [RC] STAT Care 04/10/17 20:33 Active Peripheral IV Care [RC] . DIRECTED Care 04/10/17 21:06 Active CULTURE URINE [RM] Stat Lab 04/10/17 21:22 Results Peripheral IV Insertion Adult [OM.PC] Stat Oth 04/10/17 21:06 Ordered Labs: Laboratory Tests 04/10/17 04/10/17 04/10/17 Range/Units 21:20 21:20 21:20 WBC 7.99 (4.23-9.07) K/mm3 RBC 3.76 L (4.63-6.08) M/mm3 Hgb 11.0 L (13.7-17.5) gm/L Hct 35.4 L (40.1-51.0) % MCV 94.1 H (79.0-92.2) fl MCH 29.3 (25.7-32.2) pg MCHC 31.1 L (32.2-35.5) g/dl RDW Std Deviation 53.0 H (35.1-43.9) fL Plt Count 214 (163-337) K/mm3 MPV 9.6 (9.4-12.3) fl Neut % (Auto) 85.6 H (34.0-67.9) % Lymph % (Auto) 5.6 L (21.8-53.1) % Hodgeman % (Auto) 7.8 (5.3-12.2) % Eos % (Auto) 0.6 L (0.8-7.0) Baso % (Auto) 0.1 (0.1-1.2) % Neut # (Auto) 6.84 H (1.78-5.38) K/mm3 Lymph # (Auto) 0.45 L (1.32-3.57) K/mm3 Hodgeman # (Auto) 0.62 (0.30-0.82) K/mm3 Eos # (Auto) 0.05 (0.04-0.54) K/mm3 Baso # (Auto) 0.01 (0.01-0.08) K/mm3 Manual Slide Review Abnormal smear Sodium 144 (136-145) mEq/L Potassium 4.4 (3.5-5.1) mEq/L Chloride 109 H (98-107) mEq/L Carbon Dioxide 28 (21-32) mEq/L Anion Gap 11.4 (5-15) BUN 27 H (7-18) mg/dL Creatinine 0.9 (0.7-1.3) mg/dL Est Cr Clr Drug Dosing 2.14 mL/min Estimated GFR (MDRD) > 60 (>60) mL/min BUN/Creatinine Ratio 30.0 H (14-18) Glucose 126 H (83-115) mg/dL Calcium 9.2 (8.5-10.1) mg/dL Magnesium 1.6 L (1.8-2.4) mg/dl Total Bilirubin 0.3 (0.2-1.0) mg/dL AST 15 (15-37) U/L ALT 23 (16-63) U/L Alkaline Phosphatase 68 (46-116) U/L Troponin I < 0.017 (0.00-0.056) ng/mL Total Protein 7.0 (6.4-8.2) g/dl Albumin 3.3 L (3.4-5.0) g/dl Globulin 3.7 gm/dL Albumin/Globulin Ratio 0.9 L (1-2) Urine Color Yellow (Yellow) Urine Appearance Clear (Clear) Urine pH 5.5 (5.0-8.0) Ur Specific Mccune > or = 1.030 (1.005-1.030) Urine Protein 1+ H (Negative) Urine Glucose (UA) Negative (Negative) Urine Ketones Negative (Negative) Urine Occult Blood Trace-intact H (Negative) Urine Nitrite Negative (Negative) Urine Bilirubin Negative (Negative) Urine Urobilinogen 0.2 (0.2-1.0) Ur Leukocyte Esterase Trace H (Negative) Urine RBC 0-5 (0-5) /hpf Urine WBC 10-20 H (0-5) /hpf Ur Epithelial Cells 0-5 (0-5) /hpf Amorphous Sediment Few H (NOT SEEN) /hpf Urine Bacteria Few (FEW) /hpf Urine Mucus Few (FEW) /hpf Meds: Medications Discontinued Medications Generic Name Dose Route Start Last Admin Trade Name Freq PRN Reason Stop Dose Admin Sodium Chloride 1,000 mls @ 125 mls/hr 04/10/17 21:15 04/10/17 21:10 Normal Saline IV 125 mls/hr ASDIRECTED ADRIENNE Administration Magnesium Sulfate/Dextrose 1 100 mls @ 100 mls/hr 04/10/17 22:31 gm/ Premix IV 04/10/17 23:30 ONETIME ONE Magnesium Sulfate 2 gm/ Premix 50 mls @ 50 mls/hr 04/10/17 22:45 04/10/17 22: 51 IV 04/10/17 23:44 50 mls/hr ONETIME ONE Administration Magnesium Sulfate 2 gm/ Premix 50 mls @ 50 mls/hr 04/11/17 00:16 04/11/17 00: 10 IV 04/11/17 01:15 50 mls/hr ONETIME ONE Administration Levofloxacin 500 mg 04/10/17 22:31 04/10/17 22:47 Levaquin PO 04/10/17 22:32 500 mg ONETIME ONE Administration Sodium Chloride 10 ml 04/10/17 21:06 04/10/17 21:49 Saline Flush FLUSH 10 ml ASDIRECTED PRN Administration Keep Vein Open - Re-Assessments/Exams Free Text/Narrative Re-Assessment/Exam: Peripheral IV will be established with an NS 125 mL per hour. Initial labs and studies include CBC, chem 14, magnesium, troponin, UA, chest x-ray. EKG revealed atrial flutter with a 3:1 conduction. Nonspecific IVCD. Concern for posterior wall acute IA but no significant change from February 01, 2017. Reviewed previous ER Visit January of 2017. Patent was started on cardizem 120 LA. Chest x-ray revealed: Left sided diaphragmatic hernia. With left basilar atelectasis. Findings in the right lower middle lobe suggestive of possible pneumonitis secondary to aspiration, infiltrate, or atelectasis. Patient has no cough currently has been afebrile. No respiratory complaints. Labs reviewed:Labs reviewed: White blood cell count 7.99, hemoglobin 11.0, platelet count 214, neutrophil percent is 85.6, neutrophil #6.84, sodium 144, potassium 4.4, AG 11.4, creatinine 0.9, glucose 136, troponin less than 0.017, and magnesium 1.6. UA revealed 1+ protein, trace occult blood, trace leukocyte esterase, wbc's 10- 20, amorphous sediment few. Urine culture obtained. Ordered Levaquin 500 mg by mouth and magnesium 1 g IV. Heart rate range 92-105. 04/10/17 22:16 Vital signs: BP 122/69 with a heart rate range of 88-101. Patient at times has been in and out of SR. At this time continue observe heart rate. 2327 Completed Mg Infusion. Will arrange for transport back to residence. 04/11/17 00:00 Patients heart rate has been fluctuating from the low 30s to high 140s. Patient has tachybrady syndrome. Blood pressures remained stable. Patient is asymptomatic. Discussed with patient options and either being transported to [place] to have pacemaker placement or return back to his residence and see his PCP for further evaluation. I informed the patient of the procedure for pacemaker implantation. He is aware of this. He is alert and oriented. He request being transported to [place] for further evaluation for pacemaker implantation. 04/11/17 00:[address] Garcia production control specialist Cardiologists. Patient requires pacemaker. Admit to hospitalists. Dr. Logan production control specialist hospitalists has accepted the patient. Will hold off in starting lovenox or heparin. Ambulance has been notified. Transfer paperwork completed. Departure - Departure Time of Disposition: 00:46 Disposition: DC/Tfer to Acute Hospital 02 Reason for Transfer *Q: Other Condition: Good Clinical Impression: Hypomagnesemia, Tachy-radhames syndrome Atrial flutter Qualifiers: Atrial flutter type: typical Qualified Code(s): I48.3 - Typical atrial flutter UTI (urinary tract infection) Qualifiers: Urinary tract infection type: site unspecified Hematuria presence: with hematuria Qualified Code(s): N39.0 - Urinary tract infection, site not specified Prescriptions: Levofloxacin [Levaquin] 500 mg PO Q24H #6 tablet Instructions: Hypomagnesemia, Atrial Flutter, Urinary Tract Infection, Adult, [id number] Referrals: Brigido Buck Jr, MD [Primary Care Provider] - - My Orders Last 24 Hours: My Active Orders 04/10/17 21:06 Peripheral IV Care [RC] . DIRECTED Peripheral IV Insertion Adult [OM.PC] Stat 04/10/17 21:22 CULTURE URINE [RM] Stat - Assessment/Plan Last 24 Hours: My Active Orders 04/10/17 21:06 Peripheral IV Care [RC] . DIRECTED Peripheral IV Insertion Adult [OM.PC] Stat 04/10/17 21:22 CULTURE URINE [RM] Stat
[2017-04-10] MEDS ORDERED: Levofloxacin 250 MG Tab PO ONE (22:31)
[2017-04-10] MEDS ORDERED: Magnesium Sulfate/Water 2 GM in Premix Bag 1 BAG IV ONE (22:45)
[2017-04-11] MEDS ORDERED: Magnesium Sulfate/Water 2 GM in Premix Bag 1 BAG IV ONE (00:16)
--- NOTE | 2017-04-11 07:23 | CR ---
Chest: Portable view of the chest is obtained. Comparison: Previous chest x-ray of 02/01/17. Linear densities identified within both lung bases which appear stable. Left hemidiaphragm is elevated which is stable. No acute infiltrates are seen. Heart size appears to be slightly enlarged. Tortuous thoracic aorta is seen. Bony structures are osteopenic. Impression: 1. Findings as described above. No significant change is seen from prior study. Diagnostic code #3
== END 2017-04-11 00:55 ==
LOC: JD.ED 20:23
DX: I49.5 Sick sinus syndrome (principal); I48.3 Typical atrial flutter; N39.0 Urinary tract infection, site not specified; E83.42 Hypomagnesemia; I10 Essential (primary) hypertension; E78.00 Pure hypercholesterolemia, unspecified; E11.9 Type 2 diabetes mellitus without complications; G80.9 Cerebral palsy, unspecified; Z85.828 Personal history of other malignant neoplasm of skin; Z85.820 Personal history of malignant melanoma of skin; Z98.890 Other specified postprocedural states; Z87.891 Personal history of nicotine dependence; Z79.84 Long term (current) use of oral hypoglycemic drugs; Z79.899 Other long term (current) drug therapy
CPT/HCPCS: 36415; 71010; 80053; 81001; 83735; 84484; 85025; 87086; 93005; 96361; 96365; 96367; 99285; A9270; J7040; J7050; J3475

== ENCOUNTER 2017-10-22 14:23 | Emergency (ER) | payer MEDICARE, OTHER, MEDICAID ==
[2017-10-22] MEDS ORDERED: Sodium Chloride 0.9% 10 ML Syringe FLUSH PRN (14:34)
[2017-10-22] MEDS ORDERED: Diltiazem 25 MG/5 ML SDV IVPUSH ONE (14:36)
[2017-10-22] MEDS ORDERED: Sodium Chloride 0.9% 1,000 ML IV SCH (14:45)
[2017-10-22] MEDS ORDERED: Diltiazem 125 MG in Sodium Chloride 0.9% 100 ML IV SCH (14:45)
--- NOTE | 2017-10-22 15:11 | EDM.PDOC ---
ED HPI GENERAL MEDICAL PROBLEM - General Chief Complaint: Cardiovascular Problem Stated Complaint: [facility] Time Seen by Provider: 10/22/17 14:33 Source of Information: Reports: Patient, Retirement Records History Limitations: Reports: No Limitations - History of Present Illness INITIAL COMMENTS - FREE TEXT/NARRATIVE: The patient presents with tachycardia. He lives at the care home and the nurses did vitals and found his heart rate was high at 150. According to family he has a history of A-fib but in the care home record he has a diagnosis of tachycardia, unspecified. He has no complaints what so ever. He did not know he had a fast heart rate and how long he has been in it. He has no fever, chills, cough, congestion, runny nose, chest pain, shortness of breath , abdominal pain, nasuea or vomiting. Onset: Unknown/Unsure Improves with: Reports: None Worsens with: Reports: None Associated Symptoms: Reports: No Other Symptoms - Related Data Allergies Allergy/AdvReac Type Severity Reaction Status Date / Time No Known Allergies Allergy Verified 10/22/17 14:30 Home Meds: Home Meds Simvastatin [Zocor] 40 mg PO DAILY 01/12/14 [History] Tamsulosin [Flomax] 0.4 mg PO DAILY 01/12/14 [History] metFORMIN [Glucophage XR] 500 mg PO BID 01/12/14 [History] Cyanocobalamin (Vitamin B-12) [B-12] 1,000 mcg PO DAILY #30 tablet.er 03/09/14 [ Rx] Multivitamins with Iron [Daily Multivitamin with Iron] 1 each PO DAILY #30 tablet 03/09/14 [Rx] Carboxymethylcellulos/Glycerin [Refresh Optive Gel Eye Drops] 1 drop EYEBOTH DAILY 11/10/16 [History] Acetaminophen [Tylenol] 650 mg PO TID 01/09/17 [History] Lisinopril 10 mg PO DAILY 01/09/17 [History] Sennosides/Docusate Sodium [Senna-Docusate Sodium] 2 tab PO DAILY 01/09/17 [ History] Omeprazole 40 mg PO BIDAC #90 cap.cr 01/10/17 [Rx] Carboxymethyl/Gly/Poly80/Pf [Refresh Optive Advanced Drops] 1 drop TOP DAILY [History] Diltiazem HCl [Cardizem LA] 120 mg PO DAILY #30 tab.sr.24h 02/01/17 [Rx] Lidocaine HCl [Aspercreme] 0 mg TOP ASDIRECTED PRN 02/01/17 [History] Mineral Oil/Petrolatum Oint [Lacri-Lube S.O.P Oint] 0 mg TOP BEDTIME 02/01/17 [ History] Ibuprofen 200 mg PO BEDTIME 04/10/17 [History] Levofloxacin [Levaquin] 500 mg PO Q24H #6 tablet 04/10/17 [Rx] Omeprazole 40 mg PO DAILY 10/22/17 [History] Past Medical History HEENT History: Reports: Hard of Hearing, Impaired Vision Cardiovascular History: Reports: Afib, High Cholesterol, Hypertension, Other ( See Below) Other Cardiovascular History: tachycardia, bradycardia Respiratory History: Reports: None Gastrointestinal History: Reports: Chronic Constipation, Colon Polyp, Hemorrhoids, Other (See Below) Other Gastrointestinal History: dysphagia, gallstones Genitourinary History: Reports: BPH, UTI, Recurrent 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 Musculoskeletal History: Reports: None, Other (See Below) Neurological History: Reports: Cerebral Palsy, Other (See Below) Other Neuro History: infantile cerebral palsy Psychiatric History: Reports: None Endocrine/Metabolic History: Reports: Diabetes, Type II Hematologic History: Reports: None Immunologic History: Reports: None Oncologic (Cancer) History: Reports: Basal Cell Carcinoma Other Dermatologic History: disorder of the skin, malignant melanoma - Past Surgical History Head Surgeries/Procedures: Reports: None GI Surgical History: Reports: Colonoscopy, Hernia Repair/Other Oncologic Surgical History: Reports: Other (See Below) Other Oncologic Surgeries/Procedures: sentinel lymph node biopsy Social & Family History - Family History Family Medical History: Unobtainable - Tobacco Use Smoking Status *Q: Unknown Ever Smoked Used Tobacco, but Quit: Yes Month/Year Tobacco Last Used: 20 years ago quit Second Hand Smoke Exposure: No - Caffeine Use Caffeine Use: Reports: None - Alcohol Use Days Per Week of Alcohol Use: 0 Number of Drinks Per Day: 0 Total Drinks Per Week: 0 - Recreational Drug Use Recreational Drug Use: No Drug Use in Last 12 Months: No ED ROS GENERAL - Review of Systems Review Of Systems: See Below Constitutional: Reports: No Symptoms HEENT: Reports: No Symptoms Respiratory: Reports: No Symptoms Cardiovascular: Reports: Palpitations. Denies: Chest Pain Endocrine: Reports: No Symptoms GI/Abdominal: Reports: No Symptoms : Reports: No Symptoms Musculoskeletal: Reports: No Symptoms ED EXAM, GENERAL - Physical Exam Exam: See Below Exam Limited By: No Limitations General Appearance: Alert, No Apparent Distress Ears: Normal External Exam Nose: Normal Inspection Head: Atraumatic, Normocephalic Neck: Normal Inspection Respiratory/Chest: No Respiratory Distress, Lungs Clear, Normal Breath Sounds Cardiovascular: No Edema, No Murmur, Tachycardia GI/Abdominal: Normal Bowel Sounds, Soft, Non-Tender, No Organomegaly Extremities: Normal Inspection Neurological: Alert, Oriented, No Motor/Sensory Deficits EKG INTERPRETATION EKG Date: 10/22/17 Time: 14:44 Rhythm: A-Fib Rate (Beats/Min): 122 [place]: Normal QRS: Normal ST-T: Normal QT: Normal Course - Vital Signs Last Recorded V/S: Last Vital Signs Temp 97.6 F 10/22/17 14:30 Pulse 83 10/22/17 16:25 Resp 14 10/22/17 16:25 BP 111/66 10/22/17 16:25 Pulse Ox 95 10/22/17 16:25 - Orders/Labs/Meds Orders: Active Orders 24 hr Category Date Time Status Cardiac Monitoring [RC] . DIRECTED Care 10/22/17 14:34 Active EKG Documentation Completion [RC] STAT Care 10/22/17 14:36 Active Holter Monitor 48 Hours [RC] .PRN Care 10/22/17 16:52 Ordered Peripheral IV Care [RC] . DIRECTED Care 10/22/17 14:35 Active UA W/MICROSCOPIC [URIN] Stat Lab 10/22/17 14:34 Ordered Diltiazem 125 mg Med 10/22/17 14:45 Active Sodium Chloride 0.9% [Normal Saline] 100 ml IV TITRATE Sodium Chloride 0.9% [Normal Saline] 1,000 ml Med 10/22/17 14:45 Active IV ASDIRECTED Sodium Chloride 0.9% [Saline Flush] Med 10/22/17 14:34 Active 10 ml FLUSH ASDIRECTED PRN Peripheral IV Insertion Adult [OM.PC] Stat Oth 10/22/17 14:34 Ordered Medication Orders Diltiazem HCl 125 mg/ Sodium (Chloride) 125 mls @ 10 mls/hr IV TITRATE ADRIENNE; Protocol Last Admin: 10/22/17 14:54 Dose: 10 mg/hr, 10 mls/hr Sodium Chloride (Normal Saline) 1,000 mls @ 125 mls/hr IV ASDIRECTED ADRIENNE Last Admin: 10/22/17 14:44 Dose: 125 mls/hr Sodium Chloride (Saline Flush) 10 ml FLUSH ASDIRECTED PRN PRN Reason: Keep Vein Open Last Admin: 10/22/17 14:49 Dose: 10 ml Labs: Laboratory Tests 10/22/17 10/22/17 Range/Units 14:35 14:35 WBC 5.91 (4.23-9.07) K/mm3 RBC 3.72 L (4.63-6.08) M/mm3 Hgb 10.9 L (13.7-17.5) gm/L Hct 35.9 L (40.1-51.0) % MCV 96.5 H (79.0-92.2) fl MCH 29.3 (25.7-32.2) pg MCHC 30.4 L (32.2-35.5) g/dl RDW Std Deviation 55.7 H (35.1-43.9) fL Plt Count 214 (163-337) K/mm3 MPV 9.4 (9.4-12.3) fl Neut % (Auto) 79.3 H (34.0-67.9) % Lymph % (Auto) 10.3 L (21.8-53.1) % [place] % (Auto) 8.1 (5.3-12.2) % Eos % (Auto) 1.5 (0.8-7.0) Baso % (Auto) 0.3 (0.1-1.2) % Neut # (Auto) 4.68 (1.78-5.38) K/mm3 Lymph # (Auto) 0.61 L (1.32-3.57) K/mm3 [place] # (Auto) 0.48 (0.30-0.82) K/mm3 Eos # (Auto) 0.09 (0.04-0.54) K/mm3 Baso # (Auto) 0.02 (0.01-0.08) K/mm3 Sodium 148 H (136-145) mEq/L Potassium 4.4 (3.5-5.1) mEq/L Chloride 110 H (98-107) mEq/L Carbon Dioxide 28 (21-32) mEq/L Anion Gap 14.4 (5-15) BUN 29 H (7-18) mg/dL Creatinine 1.1 (0.7-1.3) mg/dL Est Cr Clr Drug Dosing 40.55 mL/min Estimated GFR (MDRD) > 60 (>60) mL/min BUN/Creatinine Ratio 26.4 H (14-18) Glucose 132 H (83-115) mg/dL Calcium 9.2 (8.5-10.1) mg/dL Total Bilirubin 0.3 (0.2-1.0) mg/dL AST 15 (15-37) U/L ALT 14 L (16-63) U/L Alkaline Phosphatase 67 (46-116) U/L Troponin I < 0.017 (0.00-0.056) ng/mL Total Protein 7.3 (6.4-8.2) g/dl Albumin 3.5 (3.4-5.0) g/dl Globulin 3.8 gm/dL Albumin/Globulin Ratio 0.9 L (1-2) Digoxin < 0.2 L (0.9-2.0) ng/mL Meds: Medications Generic Name Dose Route Start Last Admin Trade Name Freq PRN Reason Stop Dose Admin Diltiazem HCl 125 mg/ Sodium 125 mls @ 10 mls/hr 10/22/17 14:45 10/22/17 14: 54 Chloride IV 10 mg/hr TITRATE ADRIENNE 10 mls/hr Administration Protocol 10 MG/HR Sodium Chloride 1,000 mls @ 125 mls/hr 10/22/17 14:45 10/22/17 14:44 Normal Saline IV 125 mls/hr ASDIRECTED ADRIENNE Administration Sodium Chloride 10 ml 10/22/17 14:34 10/22/17 14:49 Saline Flush FLUSH 10 ml ASDIRECTED PRN Administration Keep Vein Open Discontinued Medications Generic Name Dose Route Start Last Admin Trade Name Freq PRN Reason Stop Dose Admin Diltiazem HCl 10 mg 10/22/17 14:36 10/22/17 14:44 Diltiazem IVPUSH 10/22/17 14:37 10 mg ONETIME ONE Administration - Re-Assessments/Exams Free Text/Narrative Re-Assessment/Exam: 10/22/17 15:13 I ordered an IV NS at 125mL/hr, cardizem bolus of 10mg IV and a drip at 10mg/ hr. I also ordered an EKG that showed A-fib with a rapid rate and no acute changes. I also ordered labs. 10/22/17 16:54 His EKG shows A-fib at a rate of 122. There is no acute changes. He has a RBBB. His Hgb is a little low at 10.9. His Na was 148. His glucose was 132. His troponin was negative. His dig was <0.2. His heart rate came down in the 80s to 90s. He would have some pauses at times. I called Dr Reich and I will get the patient on a holter monitor. Departure - Departure Time of Disposition: 17:20 Disposition: Home, Self-Care 01 Condition: Good Clinical Impression: Sinus pause Atrial fibrillation Qualifiers: Atrial fibrillation type: chronic Qualified Code(s): I48.2 - Chronic atrial fibrillation Referrals: Brigido Buck Jr, MD [Primary Care Provider] - Forms: ED Department Discharge Additional Instructions: Keep taking your medicine. Wear the holter monitor for 2 days. Follow up with Dr Reich within a week. Please return if you are worse. - My Orders Last 24 Hours: My Active Orders 10/22/17 14:34 Cardiac Monitoring [RC] . DIRECTED UA W/MICROSCOPIC [URIN] Stat Sodium Chloride 0.9% [Saline Flush] 10 ml FLUSH ASDIRECTED PRN Peripheral IV Insertion Adult [OM.PC] Stat 10/22/17 14:35 Peripheral IV Care [RC] . DIRECTED 10/22/17 14:36 EKG Documentation Completion [RC] STAT 10/22/17 14:45 Diltiazem 125 mg Sodium Chloride 0.9% [Normal Saline] 100 ml IV TITRATE Sodium Chloride 0.9% [Normal Saline] 1,000 ml IV ASDIRECTED 10/22/17 16:52 Holter Monitor 48 Hours [RC] .PRN - Assessment/Plan Last 24 Hours: My Active Orders 10/22/17 14:34 Cardiac Monitoring [RC] . DIRECTED UA W/MICROSCOPIC [URIN] Stat Sodium Chloride 0.9% [Saline Flush] 10 ml FLUSH ASDIRECTED PRN Peripheral IV Insertion Adult [OM.PC] Stat 10/22/17 14:35 Peripheral IV Care [RC] . DIRECTED 10/22/17 14:36 EKG Documentation Completion [RC] STAT 10/22/17 14:45 Diltiazem 125 mg Sodium Chloride 0.9% [Normal Saline] 100 ml IV TITRATE Sodium Chloride 0.9% [Normal Saline] 1,000 ml IV ASDIRECTED 10/22/17 16:52 Holter Monitor 48 Hours [RC] .PRN
[2017-10-22 16:30] VITALS: BP 111/66
== END 2017-10-22 18:33 | disposition home or self-care (01) ==
LOC: JD.ED 14:23
DX: I48.2 Chronic atrial fibrillation (principal); I10 Essential (primary) hypertension; E78.00 Pure hypercholesterolemia, unspecified; R00.8 Other abnormalities of heart beat; Z79.899 Other long term (current) drug therapy; Z79.84 Long term (current) use of oral hypoglycemic drugs; Z87.440 Personal history of urinary (tract) infections
CPT/HCPCS: 36415; 80053; 80162; 84484; 85025; 93005; 93225; 93226; 96361; 96365; 96376; 99285; J3490; J7030; J7040; J7050; 93010; 99284-25